=== PATIENT | male | born 1990 | race Two or more races ===

== ENCOUNTER 2017-02-01 16:29 | Observation (INO) | payer MEDICAID, OTHER ==
[2017-02-01] MEDS ORDERED: Ketorolac 60 MG/2 ML SDV IM ONE ×2 (16:46→18:04)
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
[2017-02-01] MEDS ORDERED: Ondansetron 4 MG/2 ML SDV IV PRN (17:57)
[2017-02-01] MEDS ORDERED: Nicotine 21 MG/24 Hr Patch TRDERM ONE (19:17)
[2017-02-01] MEDS ORDERED: Morphine 2 MG/ML Syringe IVPUSH ONE (19:18)
[2017-02-01] MEDS: Sodium Chloride 0.9% 10 ML Syringe FLUSH PRN (20:00)
[2017-02-01] MEDS ORDERED: Gabapentin 600 MG Tab PO SCH (21:00)
[2017-02-01] MEDS ORDERED: traZODone 100 MG Tab PO SCH (21:00)
[2017-02-01] MEDS ORDERED: Nicotine 21 MG/24 Hr Patch ONE (21:29)
[2017-02-01] MEDS ORDERED: traZODone 50 MG Tab PO SCH ×2 (21:37→21:45)
[2017-02-02] MEDS: Ketorolac 30 MG/ML SDV IVPUSH PRN ×2 (04:10→10:27)
[2017-02-02] MEDS: Sodium Chloride 0.9% 10 ML Syringe FLUSH PRN ×3 (04:11→10:27)
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
[2017-02-02] MEDS: Gabapentin 300 MG Cap PO SCH ×2 (08:39→14:07)
[2017-02-02] MEDS ORDERED: Docusate Sodium 100 MG Cap PO SCH (09:00)
[2017-02-02] MEDS ORDERED: Multivitamin Tab PO SCH (09:00)
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
[2017-02-02] MEDS ORDERED: Gabapentin 300 MG Cap PO SCH (12:00)
[2017-02-02 16:22] VITALS: BP 135/86
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
[2017-02-02] MEDS ORDERED: Nicotine 21 MG/24 Hr Patch TRDERM SCH ×2 (20:00→21:00)
[2017-02-02] MEDS ORDERED: traZODone 100 MG Tab PO SCH (21:00)
[2017-02-02] MEDS ORDERED: Gabapentin 600 MG Tab PO SCH (21:00)
== END 2017-02-02 17:00 | disposition home or self-care (01) ==
LOC: FB.ED 16:29 → FB.MS 17:54
PROVIDERS: ADMIT Emergency Medicine; ATTEND Family Medicine
DX: S32.009K Unspecified fracture of unspecified lumbar vertebra, subsequent encounter for fracture with nonunion (principal); R29.898 Other symptoms and signs involving the musculoskeletal system; S39.92XA Unspecified injury of lower back, initial encounter; F13.10 Sedative, hypnotic or anxiolytic abuse, uncomplicated; F12.10 Cannabis abuse, uncomplicated; F15.10 Other stimulant abuse, uncomplicated; Z79.899 Other long term (current) drug therapy; Z98.890 Other specified postprocedural states; F17.210 Nicotine dependence, cigarettes, uncomplicated
CPT/HCPCS: 36415; 72131; 72148; 80053; 80305; 81003; 85025; 86140; 96372; 96374; 96375; 96376; 99285; A9270; G0378; J1885; J2270; J7050

== ENCOUNTER 2017-12-23 20:39 | Emergency (ER) | payer MEDICAID, OTHER ==
[2017-12-23] MEDS ORDERED: Sodium Chloride 0.9% 1,000 ML IV ONE ×2 (20:50→21:53)
[2017-12-23] MEDS ORDERED: diphenhydrAMINE 50 MG/ML SDV IVPUSH ONE (20:55)
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
[2017-12-23 21:47] LABS: ACETAMINOPHEN < 2 ug/mL (10-30)
[2017-12-23] MEDS ORDERED: LORazepam 2 MG/ML SDV IVPUSH STA (21:51)
[2017-12-23 23:46] VITALS: BP 140/71
== END 2017-12-23 23:55 ==
LOC: FB.ED 20:39
DX: Z02.89 Encounter for other administrative examinations (principal); F10.129 Alcohol abuse with intoxication, unspecified; F15.129 Other stimulant abuse with intoxication, unspecified; Y90.0 Blood alcohol level of less than 20 mg/100 ml; E86.0 Dehydration; M62.82 Rhabdomyolysis; R45.6 Violent behavior; F17.210 Nicotine dependence, cigarettes, uncomplicated
CPT/HCPCS: 36415; 51701; 80048; 80305; 82550; 84443; 85025; 85610; 93005; 96361; 96374; 96375; 99284; 99285; G0480; J1200; J2060; J7040; J7030